=== PATIENT | female | born 1935 | race Caucasian/White ===

== ENCOUNTER → 2017-07-16 | Outpatient (CLI) | payer MEDICARE ==
[~2017-07-16] MED LIST: ACET325T14 PO; ACYC-114 PO; ALLO100T30 PO; ALLO300T PO; ALLO300T80 PO; ASCO-96 PO; ASCO500T12 PO; ATOR10TA PO; BISA10SU2 PR; CALC-451 PO; CALC0.25 PO; CALC0.254 PO; CALC1CAP8 PO; CALC200T3 PO; CALC300T5 PO; CHOL20002 PO; CIPR500T3 PO; CLAR500T PO; DILT120C9 PO; DILT120T3 PO; ENAL5TAB PO; GLUC500T11 PO; HYDR-3237 PO; LEVO112T2 PO; LEVO25TA2 PO; LEVO500T8 PO; LIDO5CRE14 EXT; LOVA20TA2 PO; LOVA40TA2 PO; MAGN250T9 PO; MAGN400T7 PO; METR500T8 PO; OMNIPAQUE 350 MG/ML, 100ML BOTTLE ONE; ONDA4TAB12 PO; ONDA4TAB13 SL; OXYC5CAP2 PO; OXYC5TAB3 PO; PANT40TA5 PO; POTA10TA11 PO; PRED20TA PO; PROC10TA78 PO; SIME80TA16 PO; SUCR1ORA5 PO; SUCR1TAB PO; THIA100T10 PO; [UNRECOGNIZED DRUG - CODE] PO; [UNRECOGNIZED DRUG - CODE] PO
== END | disposition home or self-care (01) ==
LOC: CFH 08:40
PROVIDERS: ATTEND Internal Medicine Hematology & Oncology
DX: N28.89 Other specified disorders of kidney and ureter (principal); I70.0 Atherosclerosis of aorta; M47.899 Other spondylosis, site unspecified; C82.5 Diffuse follicle center lymphoma
CPT/HCPCS: 71260; 74177; Q9967

== ENCOUNTER 2017-07-24 19:18 | Inpatient (IN) | payer MEDICARE ==
[~2017-07-24] VITALS: Ht 160 cm; Wt 61.3 kg
[~2017-07-24 19:18] MED LIST changes: -OMNIPAQUE 350 MG/ML, 100ML BOTTLE ONE
[2017-07-24 20:39] LABS: BASOPHILS # (AUTO) 0.06 x10^3/uL (0-0.1); BASOPHILS % (AUTO) 1 % (0-1); EOSINOPHILS # (AUTO) 0.06 x10^3/uL (0-0.4); EOSINOPHILS % (AUTO) 1 % (1-7); LYMPHOCYTES # (AUTO) 0.66 x10^3/uL (1-3.4); LYMPHOCYTES % (AUTO) 7 % (22-44); MD NO; MEAN CORPUSCULAR HEMOGLOBIN 32.3 pg (27.0-34.8); MEAN CORPUSCULAR HGB CONC 33.9 g/dL (32.4-35.8); MEAN CORPUSCULAR VOLUME 95.3 fL (80-100); MEAN PLATELET VOLUME 7.6 fL (7.4-10.4); MONOCYTES % (AUTO) 3 % (2-9); NEUTROPHILS # (AUTO) 8.18 x10^3/uL (1.8-6.8); NEUTROPHILS % (AUTO) 88 % (42-75); PLATELET COUNT 141 x10^3/uL (130-400); RED BLOOD COUNT 3.78 x10^6/uL (3.82-5.3); RED CELL DISTRIBUTION WIDTH 14.4 % (9.6-15.2)
[2017-07-24 20:44] LABS: INTERNATIONAL NORMALIZED RATIO 0.96 (0.93-1.1)
[2017-07-24 20:49] LABS: ANION GAP 9 mmol/L (5-15); CALCIUM 7.8 mg/dL (8.5-10.1); CHLORIDE 107 mmol/L (98-107); CREATININE 0.88 mg/dL (0.55-1.02)
[2017-07-24 20:50] LABS: ALANINE AMINOTRANSFERASE 24 U/L (12-78); ALBUMIN 3.6 g/dL (3.4-5.0)
[2017-07-24 20:54] LABS: ALKALINE PHOSPHATASE 54 U/L (45-117); BILIRUBIN,TOTAL 0.3 mg/dL (0.2-1.0); TOTAL PROTEIN 6.1 g/dL (6.4-8.2); TROPONIN I < 0.015 ng/mL (0.000-0.045)
[2017-07-25] VITALS: BP 123/73
[2017-07-25 04:00] VITALS: BP 111/65
[2017-07-25] MEDS: ASPIRIN 81 MG TABLET EC PO SCH (05:04)
[2017-07-25] MEDS: LEVOTHYROXINE 88 MCG TABLET PO SCH (05:04)
[2017-07-25 06:49] LABS: CHOL/HDL RATIO 2.8; LDL/HDL RATIO 1.1 (0.5-3.0)
[2017-07-25 08:48] VITALS: BP 111/73
[2017-07-25] MEDS: DILTIAZEM 240 MG CAP.ER.24H PO SCH (09:16)
[2017-07-25 12:46] VITALS: BP 114/70
[2017-07-25 18:41] VITALS: BP 101/60
[2017-07-25] MEDS ORDERED: LOVASTATIN 20 MG TABLET PO SCH (21:00)
[2017-07-26 01:52] VITALS: BP 100/61
[2017-07-26] MEDS: ASPIRIN 81 MG TABLET EC PO SCH (05:35)
[2017-07-26] MEDS: LEVOTHYROXINE 88 MCG TABLET PO SCH (05:36)
[2017-07-26] MEDS: DILTIAZEM 240 MG CAP.ER.24H PO SCH (08:17)
[2017-07-26 08:23] VITALS: BP 112/71
[2017-07-26] MEDS ORDERED: ASPI-621 PO (08:34)
[2017-07-26] MEDS ORDERED: CALCIUM CARBONATE 500 MG TABLET PO SCH (09:00)
[2017-07-26] MEDS ORDERED: ASCORBIC ACID 500 MG TABLET PO SCH (09:00)
[2017-07-26] MEDS ORDERED: ALLOPURINOL 300 MG TABLET PO SCH (09:00)
[2017-07-26] MEDS ORDERED: CALCITRIOL 0.25 MCG CAPSULE PO SCH (09:00)
[2017-07-26] MEDS ORDERED: MAGNESIUM OXIDE 400 MG TABLET PO SCH (09:00)
[2017-07-26] MEDS ORDERED: CALCIUM/VITAMIN D3 250-125 TABLET PO SCH (09:00)
== END 2017-07-26 11:33 | disposition home or self-care (01) | DRG 69 ==
LOC: ED 22:30 → EDIP 23:28 → 4EST 23:42
PROVIDERS: ADMIT Internal Medicine; ATTEND Internal Medicine
DX: G45.9 Transient cerebral ischemic attack, unspecified (principal); C85.90 Non-Hodgkin lymphoma, unspecified, unspecified site; R47.01 Aphasia; E20.9 Hypoparathyroidism, unspecified; E78.5 Hyperlipidemia, unspecified; E03.9 Hypothyroidism, unspecified; D32.9 Benign neoplasm of meninges, unspecified; I10 Essential (primary) hypertension; M10.9 Gout, unspecified; Z82.3 Family history of stroke; Z95.0 Presence of cardiac pacemaker
CPT/HCPCS: 36415; 70450; 71045; 80053; 80061; 84484; 85025; 85610; 93005; 93306; 93880; 99285

== ENCOUNTER → 2017-08-28 | Outpatient (CLI) | payer MEDICARE ==
[~2017-08-28] MED LIST changes: +ASPI-621 PO
== END | disposition home or self-care (01) ==
LOC: CFH 11:10
PROVIDERS: ATTEND Urology
DX: N28.1 Cyst of kidney, acquired (principal)
CPT/HCPCS: 76770

== ENCOUNTER 2017-10-07 17:31 | Emergency (ER) | payer MEDICARE ==
[~2017-10-07] VITALS: Ht 160 cm; Wt 63.6 kg
[2017-10-07 18:11] LABS: MICROSCOPIC AUTO
[2017-10-07] MEDS ORDERED: CEFTRIAXONE 1,000 MG IM ONE (19:30)
[2017-10-07] MEDS ORDERED: CEFTRIAXONE 1,000 MG ONE (19:32)
[2017-10-07 19:58] VITALS: BP 101/57
== END 2017-10-07 20:00 | disposition home or self-care (01) ==
LOC: ED 19:54
DX: K29.00 Acute gastritis without bleeding (principal); N30.01 Acute cystitis with hematuria; E03.9 Hypothyroidism, unspecified; I10 Essential (primary) hypertension; M10.9 Gout, unspecified; Z95.0 Presence of cardiac pacemaker; Z90.710 Acquired absence of both cervix and uterus
CPT/HCPCS: 81001; 96372; 99283; J0696

== ENCOUNTER → 2017-10-10 | Outpatient (CLI) | payer MEDICARE | END | disposition home or self-care (01) | LOC: CFH 10:24 | PROVIDERS: ATTEND Internal Medicine | DX: Z12.31 Encounter for screening mammogram for malignant neoplasm of breast (principal) | CPT/HCPCS: 77067 ==

== ENCOUNTER → 2017-10-14 | Outpatient (CLI) | payer MEDICARE | END | disposition home or self-care (01) | LOC: CFH 14:37 | PROVIDERS: ATTEND Internal Medicine | DX: M16.11 Unilateral primary osteoarthritis, right hip (principal); I12.9 Hypertensive chronic kidney disease with stage 1 through stage 4 chronic kidney disease, or unspecified chronic kidney disease; N18.9 Chronic kidney disease, unspecified; E78.1 Pure hyperglyceridemia; R01.1 Cardiac murmur, unspecified; E04.1 Nontoxic single thyroid nodule; D72.89 Other specified disorders of white blood cells; E83.51 Hypocalcemia; K63.1 Perforation of intestine (nontraumatic); B96.81 Helicobacter pylori [H. pylori] as the cause of diseases classified elsewhere; C85.80 Other specified types of non-Hodgkin lymphoma, unspecified site; R16.1 Splenomegaly, not elsewhere classified; D72.819 Decreased white blood cell count, unspecified; Z12.11 Encounter for screening for malignant neoplasm of colon; N30.90 Cystitis, unspecified without hematuria; M10.00 Idiopathic gout, unspecified site; M70.61 Trochanteric bursitis, right hip; M76.31 Iliotibial band syndrome, right leg; I63.8 Other cerebral infarction; D32.9 Benign neoplasm of meninges, unspecified ==

== ENCOUNTER → 2017-10-22 | Outpatient (CLI) | payer MEDICARE ==
[~2017-10-22] MED LIST changes: +LIDOCAINE 1%, 2ML IM ONE; +ROPivacaine/PF 0.2%, 10 ML ONE; +TRIAMCINOLONE ACETONIDE 40 MG/ML, 1ML IM ONE
== END ==
LOC: RAD 07:35
PROVIDERS: ATTEND Internal Medicine
DX: M25.559 Pain in unspecified hip (principal)
CPT/HCPCS: 77002; J3301; J2795; J3490

== ENCOUNTER → 2018-02-24 | Outpatient (CLI) | payer MEDICARE ==
[~2018-02-24] MED LIST changes: -LIDOCAINE 1%, 2ML IM ONE; +OMNIPAQUE 350 MG/ML, 100ML BOTTLE ONE; -ROPivacaine/PF 0.2%, 10 ML ONE; -TRIAMCINOLONE ACETONIDE 40 MG/ML, 1ML IM ONE
== END | disposition home or self-care (01) ==
LOC: CFH 12:20
PROVIDERS: ATTEND Internal Medicine Hematology & Oncology
DX: C82.5 Diffuse follicle center lymphoma (principal); N28.1 Cyst of kidney, acquired
CPT/HCPCS: 71260; 74177; Q9967

== ENCOUNTER → 2018-03-09 | Outpatient (CLI) | payer MEDICARE ==
[~2018-03-09] MED LIST changes: -OMNIPAQUE 350 MG/ML, 100ML BOTTLE ONE; +REGADENOSON 0.4 MG/5 ML SYRINGE ONE
== END | disposition home or self-care (01) ==
LOC: CFH 12:36
PROVIDERS: ATTEND Internal Medicine Cardiovascular Disease
DX: Z01.810 Encounter for preprocedural cardiovascular examination (principal)
CPT/HCPCS: 78452; 93017; A9502; J2785

== ENCOUNTER → 2018-04-20 | Outpatient (CLI) | payer MEDICARE ==
[~2018-04-20] MED LIST changes: -CHOL20002 PO; +CHOL200085 PO; -REGADENOSON 0.4 MG/5 ML SYRINGE ONE
== END | disposition home or self-care (01) ==
LOC: CFH 08:35
PROVIDERS: ATTEND Nurse Practitioner Family
DX: K21.9 Gastro-esophageal reflux disease without esophagitis (principal); R05 Cough; M16.11 Unilateral primary osteoarthritis, right hip; M41.86 Other forms of scoliosis, lumbar region
CPT/HCPCS: 74245

== ENCOUNTER → 2018-05-18 | Outpatient (CLI) | payer MEDICARE | END | disposition home or self-care (01) | LOC: CFH 10:44 | PROVIDERS: ATTEND Internal Medicine | DX: I34.8 Other nonrheumatic mitral valve disorders (principal) | CPT/HCPCS: 71046 ==

== ENCOUNTER → 2018-10-12 | Outpatient (CLI) | payer MEDICARE ==
[~2018-10-12] MED LIST changes: -ASPI-621 PO; +ASPI81TA45 PO; +CHOL20002 PO; -CHOL200085 PO; +METR-90 PO; -METR500T8 PO
== END | disposition home or self-care (01) ==
LOC: CFH 09:09
PROVIDERS: ATTEND Internal Medicine
DX: Z12.31 Encounter for screening mammogram for malignant neoplasm of breast (principal)
CPT/HCPCS: 77067

== ENCOUNTER 2019-02-25 11:32 | Outpatient (CLI) | payer MEDICARE | END 2019-02-25 23:59 | disposition home or self-care (01) | LOC: CFH 11:32 | PROVIDERS: ATTEND Emergency Medicine | DX: N28.1 Cyst of kidney, acquired (principal); M47.819 Spondylosis without myelopathy or radiculopathy, site unspecified; J90 Pleural effusion, not elsewhere classified | CPT/HCPCS: 74178; Q9967 ==

== ENCOUNTER 2019-02-28 06:15 | Inpatient (IN) | payer MEDICARE ==
[~2019-02-28] VITALS: Ht 160 cm; Wt 60.5 kg
[2019-03-04 08:35] VITALS: BP 117/62
== END 2019-03-04 12:45 | disposition home or self-care (01) | DRG 871 ==
LOC: ED 07:54 → EDIP 08:09 → 3NE 10:20 → DCLOUNGE 03-04 12:31
PROVIDERS: ADMIT Family Medicine; ATTEND Family Medicine
PROC: 0W993ZZ Drainage of Right Pleural Cavity, Percutaneous Approach (ICD-10-PCS; principal; 2019-03-02)
DX: A41.9 Sepsis, unspecified organism (principal); J96.00 Acute respiratory failure, unspecified whether with hypoxia or hypercapnia; J18.1 Lobar pneumonia, unspecified organism; C85.90 Non-Hodgkin lymphoma, unspecified, unspecified site; D68.69 Other thrombophilia; N39.0 Urinary tract infection, site not specified; J91.8 Pleural effusion in other conditions classified elsewhere; I48.91 Unspecified atrial fibrillation; M10.9 Gout, unspecified; I10 Essential (primary) hypertension; E03.9 Hypothyroidism, unspecified; E20.9 Hypoparathyroidism, unspecified; E78.5 Hyperlipidemia, unspecified; G47.00 Insomnia, unspecified; M19.90 Unspecified osteoarthritis, unspecified site; R59.0 Localized enlarged lymph nodes; K21.9 Gastro-esophageal reflux disease without esophagitis; Z96.643 Presence of artificial hip joint, bilateral; Z86.73 Personal history of transient ischemic attack (TIA), and cerebral infarction without residual deficits; Z95.0 Presence of cardiac pacemaker; Z87.11 Personal history of peptic ulcer disease; Z90.710 Acquired absence of both cervix and uterus; Z82.3 Family history of stroke; Z80.2 Family history of malignant neoplasm of other respiratory and intrathoracic organs; Z83.3 Family history of diabetes mellitus; Z88.0 Allergy status to penicillin; Z88.8 Allergy status to other drugs, medicaments and biological substances; Z88.2 Allergy status to sulfonamides; Z91.041 Radiographic dye allergy status; Z91.018 Allergy to other foods
CPT/HCPCS: 32555; 36415; 71045; 71260; 74178; 80048; 80053; 81001; 82945; 83605; 83615; 83690; 84145; 84157; 85025; 85610; 85730; 87040; 87070; 87205; 88112; 88305; 89051; 93005; 93306; 96374; 96375; 99285; G0378; J0696; J1885; J7060; Q0162; Q9967; J2270; J7030

== ENCOUNTER 2019-08-07 07:11 | Emergency (ER) | payer MEDICARE ==
[~2019-08-07] VITALS: Ht 160 cm; Wt 54.7 kg
[~2019-08-07 07:11] MED LIST changes: +APIX2.5T PO; +ASCO-254 PO; -ASCO500T12 PO; +Aspirin PO; -BISA10SU2 PR; +BISA10SU4 PR; +CEFD300C37 PO; +CLAR-36 PO; -CLAR500T PO; +Calcium PO; +DIGO125T PO; +DILT120C48 PO; -DILT120C9 PO; +DOXY-162 PO; -MAGN400T7 PO; +MAGN400T9 PO; +TUMS PO; +VIT1TABL32 PO
--- NOTE | 2019-08-07 08:02 | NUR ---
PT C/O PAINFUL URINATION AND DIZZINESS SINCE YESTERDAY. URINE OBTAINED, NOTED TO HAVE BLOOD IN IT. TECH PERFORMING EKG AFTER LABS DRAWN
[2019-08-07 08:18] LABS: BASOPHILS # (AUTO) 0.07 x10^3/uL (0-0.1); BASOPHILS % (AUTO) 1 % (0-1); EOSINOPHILS # (AUTO) 0.03 x10^3/uL (0-0.4); EOSINOPHILS % (AUTO) 0 % (1-7); LYMPHOCYTES # (AUTO) 0.48 x10^3/uL (1-3.4); LYMPHOCYTES % (AUTO) 4 % (22-44); MD NO; MEAN CORPUSCULAR HEMOGLOBIN 29.9 pg (27.0-34.8); MEAN CORPUSCULAR HGB CONC 32.8 g/dL (32.4-35.8); MEAN CORPUSCULAR VOLUME 91.2 fL (80-100); MEAN PLATELET VOLUME 8.5 fL (7.4-10.4); MONOCYTES # (AUTO) 0.24 x10^3/uL (0.2-0.8); MONOCYTES % (AUTO) 2 % (2-9); NEUTROPHILS # (AUTO) 12.28 x10^3/uL (1.8-6.8); NEUTROPHILS % (AUTO) 94 % (42-75); PLATELET COUNT 162 x10^3/uL (130-400); RED BLOOD COUNT 4.41 x10^6/uL (3.82-5.3); RED CELL DISTRIBUTION WIDTH 19.3 % (9.6-15.2)
[2019-08-07] MEDS ORDERED: DIGO125T10 PO (08:22)
[2019-08-07] MEDS ORDERED: VIT1TABL32 PO (08:22)
[2019-08-07] MEDS ORDERED: ASPI-647 PO (08:22)
[2019-08-07 08:26] LABS: ALANINE AMINOTRANSFERASE 22 U/L (12-78); ANION GAP 8 mmol/L (5-15); CHLORIDE 107 mmol/L (98-107); CREATININE 1.23 mg/dL (0.55-1.02)
[2019-08-07 08:28] LABS: MICROSCOPIC INDICATED
[2019-08-07 08:32] LABS: CULTURE INDICATED? YES
--- NOTE | 2019-08-07 08:42 | NUR ---
RESTING IN [facility] WHILE AWAITING DISPO
[2019-08-07 08:50] LABS: ALKALINE PHOSPHATASE 53 U/L (45-117); BILIRUBIN,TOTAL 0.6 mg/dL (0.2-1.0); TOTAL PROTEIN 6.4 g/dL (6.4-8.2)
--- NOTE | 2019-08-07 09:15 | NUR ---
TO CT VIA [facility]
[2019-08-07] MEDS ORDERED: PHENAZOPYRIDINE 200 MG TABLET PO ONE (10:00)
[2019-08-07] MEDS ORDERED: CEFTRIAXONE 1,000 MG IM ONE (10:00)
--- NOTE | 2019-08-07 10:15 | NUR ---
RE-EVALUATING PT, DISCUSSING RESULTS AND POC
[2019-08-07] MEDS ORDERED: LIDOCAINE-MPF 1%, 2ML ONE (10:38)
[2019-08-07] MEDS ORDERED: CEFTRIAXONE 1,000 MG ONE (10:39)
[2019-08-07] MEDS ORDERED: PHENAZOPYRIDINE 200 MG TABLET ONE (10:46)
[2019-08-07 11:19] VITALS: BP 101/51
--- NOTE | 2019-08-07 11:20 | NUR ---
AFTER MEDICATED PER ORDERS PT GIVEN DISCHARGE. AMBULATED TO WINDOW, STEADY GAIT.
== END 2019-08-07 11:21 | disposition home or self-care (01) ==
LOC: ED 08:39
DX: N30.01 Acute cystitis with hematuria (principal); I10 Essential (primary) hypertension; M10.9 Gout, unspecified; I48.91 Unspecified atrial fibrillation; E03.9 Hypothyroidism, unspecified; Z95.0 Presence of cardiac pacemaker; Z90.710 Acquired absence of both cervix and uterus
CPT/HCPCS: 36415; 74176; 80053; 80162; 81001; 85025; 87077; 87086; 87186; 93005; 96372; 99284; J0696

== ENCOUNTER → 2019-12-09 | Outpatient (CLI) | payer MEDICARE ==
[~2019-12-09] MED LIST changes: -ASCO-254 PO; +ASCO500T93 PO; +ASPI-647 PO; +CLAR-14 PO; -CLAR-36 PO; -DIGO125T PO; +DIGO125T10 PO; +DIGO125T85 PO; +ONDA-89 PO; -ONDA4TAB12 PO
== END | disposition home or self-care (01) ==
LOC: CFH 10:30
PROVIDERS: ATTEND Internal Medicine
DX: Z12.31 Encounter for screening mammogram for malignant neoplasm of breast (principal); Z95.0 Presence of cardiac pacemaker
CPT/HCPCS: 77067

== ENCOUNTER 2020-05-04 09:25 | Outpatient (CLI) | payer MEDICARE ==
[~2020-05-04 09:25] MED LIST changes: +DABI75CA3 PO; -ENAL5TAB PO; +ENAL5TAB10 PO; -PANT40TA5 PO; +PANT40TA6 PO; +VIT1CAPS11 PO
== END 2020-05-04 23:59 | disposition home or self-care (01) ==
LOC: PETCFH 09:25
PROVIDERS: ATTEND Internal Medicine Hematology & Oncology
DX: C83.33 Diffuse large B-cell lymphoma, intra-abdominal lymph nodes (principal); I25.10 Atherosclerotic heart disease of native coronary artery without angina pectoris; Z95.0 Presence of cardiac pacemaker
CPT/HCPCS: 78815; A9552

== ENCOUNTER → 2020-12-15 | Outpatient (CLI) | payer MEDICARE ==
[~2020-12-15] MED LIST changes: -ACYC-114 PO; +ACYC-40 PO; -CIPR500T3 PO; +CIPR500T4 PO; -OXYC5TAB3 PO; +OXYC5TAB98 PO
== END | disposition home or self-care (01) ==
LOC: CFH 09:17
PROVIDERS: ATTEND Internal Medicine
DX: Z12.31 Encounter for screening mammogram for malignant neoplasm of breast (principal)
CPT/HCPCS: 77067

== ENCOUNTER → 2021-01-29 | Outpatient (CLI) | payer MEDICARE | END | disposition home or self-care (01) | LOC: CVU 08:40 | PROVIDERS: ATTEND Internal Medicine Cardiovascular Disease | DX: I08.3 Combined rheumatic disorders of mitral, aortic and tricuspid valves (principal); I11.9 Hypertensive heart disease without heart failure; I48.0 Paroxysmal atrial fibrillation | CPT/HCPCS: 93306 ==